=== PATIENT | male | born 1960 | race Caucasian/White ===

== ENCOUNTER → 2018-06-04 09:40 | Outpatient (CLI) | payer BC, SELFPAY ==
[2018-06-04 12:27] LABS: Vitamin D,25 Hydroxy 14.4 ng/mL (29.95-100.01)
[2018-06-04 12:39] LABS: Anion Gap 7 (5-15); BUN 16 mg/dL (7-18); BUN/Creat Ratio 19.5 RATIO (10-20); Calcium,Total 8.7 mg/dL (8.5-10.1); Chloride 109 mmol/L (98-107); Cholesterol 180 mg/dL (200); Creatinine, Serum 0.82 mg/dL (0.70-1.30); EST Glomerular Filtration Rate 103 mL/min (>60); Est Glom Filt Rate - Afr Amer 124 mL/min (>60); Glucose 105 mg/dL (74-106); High Density Lipoprotein 61 mg/dL; Potassium 4.9 mmol/L (3.5-5.1); Sodium Level 143 mmol/L (136-145); Thyroid Stim Hormone (TSH) 1.14 uIU/mL (0.358-3.74); Triglycerides 50 mg/dL; Very Low Density Lipoprotein 10 mg/dL (5-40)
== END ==
PROVIDERS: Family Provider Family Medicine; PCP Family Medicine; Visit Provider Family Medicine
DX: Z00.00 Encounter for general adult medical examination without abnormal findings (principal)
CPT/HCPCS: 36415; 80048; 80061; 82306; 84443

== ENCOUNTER → 2018-12-20 16:05 | Outpatient (CLI) | payer BC, SELFPAY ==
--- NOTE | 2018-12-20 16:14 | VDLE_ITS ---
Reason For Study: LEG PAIN RIGHT CFV is compressible, spontaneous, phasic, competent and demonstrates normal augmentation. FV is compressible, spontaneous, phasic, competent and demonstrates normal augmentation. POP V is compressible, spontaneous, phasic, competent and demonstrates normal augmentation. T/P Trunk is compressible. PTV is compressible. RT PerV is compressible. Thrombus filled varicose veins noted medial and lateral thigh GSV absent s/p stripping. Procedure Exam performed in department. A preliminary report was called and/or faxed to Dr. Rayo. Interpretation Summary Deep veins of the right lower extremity are patent and compressible segmentally. There is no evidence of right lower extremity deep vein thrombosis. Valvular competence appears intact within the proximal deep venous system on the right . The right great saphenous vein is absent. Acute superficial thrombophlebitis is noted involving superficial varicosities in the right medial and lateral thigh. Ordering Physician: Pop Rayo Referring Physician: Pop Rayo Performed By: Ana Luisa Carlin RVT
== END ==
PROVIDERS: Family Provider Family Medicine; PCP Family Medicine; Referring Provider Family Medicine; Visit Provider Family Medicine
DX: M79.604 Pain in right leg (principal)
CPT/HCPCS: 93971

== ENCOUNTER → 2019-06-08 09:55 | Outpatient (CLI) | payer BC, SELFPAY ==
--- NOTE | 2019-06-08 09:58 | RAD_ITS ---
STUDY: X-RAY - LEFT KNEE REASON FOR EXAM: Male, 58 years old. Pain, decreased range of motion TECHNIQUE: 4 view(s) of the knee. COMPARISON: None. FINDINGS: Normal visualized distal femur. Normal visualized proximal tibia and fibula. Normal proximal tibiofibular articulation. There is mild degenerative arthrosis of the medial femorotibial compartment. There is mild degenerative arthrosis of the lateral femorotibial compartment. There is mild degenerative arthrosis of the patellofemoral articulation. Degenerative spurs noted in the patella The soft tissue structures are unremarkable. RAD/Knee 4 or More Views IMPRESSION: Degenerative arthrosis. Electronically Signed: Jm Healy MD at 10:41 EDT , Service support ,
[2019-06-08 13:02] LABS: Anion Gap 7 (5-15); BUN 20 mg/dL (7-18); BUN/Creat Ratio 24.8 RATIO (10-20); Calcium,Total 8.7 mg/dL (8.5-10.1); Chloride 110 mmol/L (98-107); Cholesterol 186 mg/dL (200); Creatinine, Serum 0.81 mg/dL (0.70-1.30); EST Glomerular Filtration Rate 104 mL/min (>60); Est Glom Filt Rate - Afr Amer 126 mL/min (>60); Glucose 90 mg/dL (74-106); High Density Lipoprotein 59 mg/dL; Potassium 4.3 mmol/L (3.5-5.1); Sodium Level 143 mmol/L (136-145); Triglycerides 68 mg/dL; Very Low Density Lipoprotein 14 mg/dL (5-40)
[2019-06-08 13:27] LABS: Vitamin D,25 Hydroxy 16.1 ng/mL (29.95-100.01)
== END ==
PROVIDERS: Family Provider Family Medicine; PCP Family Medicine; Referring Provider Family Medicine; Visit Provider Family Medicine
DX: Z00.00 Encounter for general adult medical examination without abnormal findings (principal); M25.562 Pain in left knee; E55.9 Vitamin D deficiency, unspecified
CPT/HCPCS: 36415; 73564; 80048; 80061; 82306

== ENCOUNTER → 2020-01-07 10:27 | Outpatient (CLI) | payer BC, SELFPAY ==
--- NOTE | 2020-01-07 10:36 | RAD_ITS ---
STUDY: X-RAY - LEFT SHOULDER REASON FOR EXAM: Male, 59 years old. left shoulder pain and limited range of motion, fell yesterday TECHNIQUE: 4 view(s) of the shoulder. COMPARISON: None. FINDINGS: Normal glenohumeral articulation. Normal acromioclavicular joint. Keel spur of the undersurface of acromion produces lateral outlet stenosis. Normal humeral head and visualized proximal humerus. The soft tissue structures are unremarkable. Normal visualized pulmonary apex. RAD/Shoulder min 2 Views IMPRESSION: Keel spur the undersurface of the acromion producing lateral outlet stenosis. MRI would be useful to evaluate the rotator cuff. Electronically Signed: Bartolome Gonzalez MD at 16:22 EST Tel , Service support ,
== END ==
PROVIDERS: PCP Family Medicine; Referring Provider Family Medicine; Visit Provider Family Medicine
DX: M25.512 Pain in left shoulder (principal)
CPT/HCPCS: 73030

== ENCOUNTER → 2020-06-11 16:08 | Outpatient (CLI) | payer BC, SELFPAY ==
[2020-06-11 18:15] LABS: Anion Gap 3 (5-15); BUN 23 mg/dL (7-18); BUN/Creat Ratio 28.3 RATIO (10-20); Calcium,Total 8.5 mg/dL (8.5-10.1); Chloride 110 mmol/L (98-107); Cholesterol 198 mg/dL (200); Creatinine, Serum 0.81 mg/dL (0.70-1.30); EST Glomerular Filtration Rate 103 mL/min (>60); Est Glom Filt Rate - Afr Amer 125 mL/min (>60); Glucose 91 mg/dL (74-106); High Density Lipoprotein 52 mg/dL; PSA,Total - Annual Screen 0.53 ng/mL (0.00-4.00); Potassium 4.8 mmol/L (3.5-5.1); Sodium Level 141 mmol/L (136-145); Triglycerides 96 mg/dL; Very Low Density Lipoprotein 19 mg/dL (5-40); Vitamin D,25 Hydroxy 37.7 ng/mL
== END ==
PROVIDERS: PCP Family Medicine; Referring Provider Family Medicine; Visit Provider Family Medicine
DX: Z00.00 Encounter for general adult medical examination without abnormal findings (principal)
CPT/HCPCS: 36415; 80048; 80061; 82306; 84153; G0103

== ENCOUNTER 2020-07-02 05:52 | Day surgery (SDC) | payer BC, SELFPAY ==
--- NOTE | 2020-06-26 16:02 | EKG12_ITS ---
Test Reason : PREOP Blood Pressure : / mmHG Vent. Rate : 063 BPM Atrial Rate : 063 BPM P-R Int : 170 ms QRS Dur : 102 ms QT Int : 404 ms P-R-T Axes : 058 049 040 degrees QTc Int : 413 ms Normal sinus rhythm Normal ECG Confirmed by KM MAYER ([id number]), editorial writer CIERA KHOURY ([id number]) on 06/29/2020 10:34:22 AM Referred By: Delmar Egan Confirmed By:KM MAYER
[2020-06-26 16:35] LABS: Hematocrit 38.3 % (40-54); Hemoglobin 12.2 g/dL (13.0-16.5); Mean Corp Hgb Conc 31.9 g/dL (32-36); Mean Corpuscular Hgb 31.2 pg (27.0-32.0); Mean Platelet Vol. 9.6 fl (6.2-12.0); Platelet Count 219 K/mm3 (150-450); RBC Distribution Width CV 13.4 % (11.6-14.6); RBC Distribution Width SD 47.8 fl (35.1-43.9); Red Blood Count 3.91 M/mm3 (4.6-6.2); White Blood Count 7.7 K/mm3 (4.4-11.0)
[2020-06-26 16:44] LABS: International Normalized Ratio 1.1; Partial Thromboplast Time 26.1 Seconds (24.1-36.2); Prothrombin Time (Protime)PT. 13.2 SECONDS (11.7-14.9)
[2020-06-26 17:08] LABS: AST(SGOT) 10 U/L (15-37); Alanine Aminotransfer ALT/SGPT 21 U/L (16-61); Albumin, Serum 3.6 g/dL (3.2-5.0); Alkaline Phosphatase 60 U/L (45-117); Anion Gap 6 (5-15); BUN 13 mg/dL (7-18); Bilirubin, Direct 0.14 mg/dL (0.00-0.30); Calcium,Total 8.7 mg/dL (8.5-10.1); Chloride 112 mmol/L (98-107); Creatinine, Serum 0.72 mg/dL (0.70-1.30); EST Glomerular Filtration Rate 118 mL/min (>60); Est Glom Filt Rate - Afr Amer 143 mL/min (>60); Globulin 3.4 g/dL (2.2-4.2); Glucose 87 mg/dL (74-106); Potassium 4.2 mmol/L (3.5-5.1); Sodium Level 143 mmol/L (136-145)
[2020-07-02] VITALS (7 sets, daily range): BP systolic 109–147; BP diastolic 66–82; PULSE 56–63; RESP 16–20; TEMP 36.1–36.8; O2SAT 93–99; BMI 36.4
[2020-07-02] MEDS: Lactated Ringers 1,000 ML 100 ML IV (06:22)
[2020-07-02] MEDS: Epinephrine (1 mg/ml) 1 MG/ML VIAL (08:00)
--- NOTE | 2020-07-02 09:24 | OP.PCM_ITS ---
Report of Operation Date of Procedure: 07/02/20 Pre-Operative Diagnosis: SAIS, AC arthrosis, large rotator cuff tear left shoulder Post-Operative Diagnosis: same Surgery/Procedure Performed:: ASD, Sandra procedure, repair of large rotator cuff tear digital field service technician: David Payne Type of Anesthesia:: General/Regional Anesthesiologist: Mitchell Lloyd - Admfermín VTE Documentation VTE Present on Admission: No VTE Mechan Device Prophylaxis: SCD's, Thigh High CITLALI Hose VTE Pharm Prophylaxis ordered?: No Reason prophylaxis not ordered:: Procedure Not Indicated
[2020-07-02] MEDS: HYDROcodone Bitartrate/Apap 5/325 Tablet PO (10:52)
== END 2020-07-02 11:47 | disposition home or self-care (01) ==
LOC: SDC 05:52 → AC 05:59
PROVIDERS: Anesthesiology; PCP Family Medicine; Referring Provider Orthopaedic Surgery; Visit Provider Orthopaedic Surgery
PROC: (CPT 29827; principal; 2020-07-02 07:10)
DX: S46.012A Strain of muscle(s) and tendon(s) of the rotator cuff of left shoulder, initial encounter (principal); S43.52XA Sprain of left acromioclavicular joint, initial encounter; M75.42 Impingement syndrome of left shoulder; M19.012 Primary osteoarthritis, left shoulder; M75.52 Bursitis of left shoulder; W19.XXXA Unspecified fall, initial encounter; Y93.9 Activity, unspecified; Y92.9 Unspecified place or not applicable; Y99.9 Unspecified external cause status; Z11.59 Encounter for screening for other viral diseases; J45.909 Unspecified asthma, uncomplicated; G47.30 Sleep apnea, unspecified; G47.00 Insomnia, unspecified; Z86.72 Personal history of thrombophlebitis; Z86.73 Personal history of transient ischemic attack (TIA), and cerebral infarction without residual deficits; Z87.891 Personal history of nicotine dependence; K21.9 Gastro-esophageal reflux disease without esophagitis; Z86.718 Personal history of other venous thrombosis and embolism
CPT/HCPCS: 29824; 29826; 29827; 64415; 36415; 80048; 80076; 85027; 85610; 85730; 87635; 93005; 94799; J7120; J2405; U0003

== ENCOUNTER → 2020-09-03 16:54 | Outpatient (CLI) | payer BC, SELFPAY ==
[2020-07-02 06:16] VITALS: BMI 36.4
== END ==
PROVIDERS: PCP Family Medicine; Visit Provider Family Medicine
DX: U07.1 COVID-19 (principal)
CPT/HCPCS: 87635; U0003

== ENCOUNTER 2020-10-20 11:52 | Emergency (ER) | payer BC, SELFPAY ==
[2020-07-02 06:16] VITALS: BMI 36.4
[2020-10-20 11:52] VITALS: BP 141/87; PULSE 75; RESP 16; TEMP 36.4; O2SAT 100; BMI 37.1
--- NOTE | 2020-10-20 12:08 | VDLE_ITS ---
Reason For Study: Swelling RIGHT LEFT CFV is compressible, spontaneous, phasic, GSV is normal. competent and demonstrates normal CFV is compressible, spontaneous, phasic, augmentation. competent, and demonstrates normal Procedure augmentation. This is a venous duplex using B-mode, color FV prox is compressible with normal venous flow and spectral Doppler. flow noted. Exam performed portable in ED. FV mid is partialy compressible with minimal A preliminary report was called and/or faxed venous flow noted. to [facility]. Acute deep vein thrombosis is noted in the left FV mid-distal, PopV, T/P Trunk, GastrocV, PTV prox-mid and PeroV prox-mid. PTV distal is compressible. PeroV distal is compressible. Interpretation Summary Acute deep venous thrombosis left mid and distal femoral vein Acute deep venous thrombosis left popliteal, tibioperoneal trunk, gastrocnemius, posterior tibial, and peroneal veins. Patent and compressible left great saphenous vein Patent and compressible right common femoral vein Ordering Physician: Chester Shirley Referring Physician: Pop Rayo Performed By: Amelia Gallegos RVT
--- NOTE | 2020-10-20 12:08 | ED.VIS.LOWEX ---
History of Present Illness Chief Complaint: Lower Extremity Injury Informant: Patient Onset: Today Context: - - awoke w/ leg sore and swollen Timing: Continuous Quality of Pain: - - sore Location: left lower leg Current Severity: Moderate Maximum Severity: Moderate Worsened by: walking Relieved by: rest Associated Symptoms: Negative for: Parasthesia, Weakness, Loss of Funtion Narrative: Patient has a history of varicose veins in both of his legs and he has had prior strippings, all remote and none recent, and he has had superficial venous thrombosis in his right lower extremity in the past but never had a deep vein thrombosis. Never been anticoagulated. Currently feels like he is having a blood clot of some sort in his left lower leg which has never been the case in the past. He had a rotator cuff surgery in June which was 3-4 months ago, he has been sedentary since then but no long travel, immobilization, other hospitalization/surgery. He denies any chest pain, shortness of breath, palpitations, near syncope/lightheadedness. No other illness. He had Covid several months ago, he recovered from that. He is healthy otherwise. - Past Medical History (1) Superficial vein thrombosis Status: Resolved (2) Varicose veins of both lower extremities Status: Chronic (3) Arthritis Status: Chronic Past Medical History - Allergies and Home Meds Allergies/Adverse Reactions: Allergies No Known Allergies Allergy (Verified 10/20/20 11:54) Primary Care Physician: Pop Rayo MD [Primary Care Provider] - Surgical History: rotator cuff repair Smoking Status: Former smoker Review of Systems General: Denies: Chills, Fever, Sweats Eyes: Denies: Visual changes - bilaterally, Diplopia ENT: Denies: Bilateral ear pain, Rhinorrhea, Sore throat Cardiovascular: Denies: Chest pain, Palpitations, Heart racing Respiratory: Denies: Dyspnea, Cough, Dyspnea on exertion Gastrointestinal: Denies: Abdominal pain, Nausea, Vomiting, Diarrhea, Melena, Hematochezia Genitourinary: Denies: Dysuria, Hematuria, Frequency Musculoskeletal: Reports: Swelling, Extremity Pain. Denies: Myalgias, Back pain Skin: Denies: Rash, Wounds Neurological: Denies: Headache, Weakness, Numbness Physical Exam Vital Signs/Narrative: Vital Signs Temp Pulse Resp BP Pulse Ox 10/20/20 11:52 97.5 F L 75 16 141/87 H 100 Inital Vital Signs reviewed: Yes - Extremity Exam Left Tib Fib: Edema - Left lower leg, pitting 2+, to the knee. No palpable cords., - - Left lower extremity nontender except Homans is positive. No signs of cellulitis or anything else focal on the skin. General: Well nourished, Well developed, - - Well-appearing no distress Head: Normocephalic, Atraumatic Skin: Normal color, No rash, No Trauma Neurological: Alert, Oriented x3, Cranial nerves II-XII grossly intact, Normal Strength, Normal Sensation Psychological: Normal affect, Normal Mood Diagnostic/Tx/Re-eval - Medical Decision Making Venous ultrasound was obtained of the left lower extremity and preliminary results from the tech is that he has a DVT from the left thigh down into the left calf. We will treat him with anticoagulants. He has no signs or symptoms of pulmonary embolus. He is given Lovenox here to last him through the evening and night, to start Eliquis in the morning. ED Disposition - Plan for ED Patient: Disposition: Home or Assisted Living Diagnosis: Acute deep vein thrombosis of left lower extremity Instructions: ED Deep Vein Thrombosis (DVT) Prescriptions: Apixaban [Eliquis] 5 mg PO BID #1 tab.ds.pk Transmission Status: Pending to [id number] Referrals: Pop Rayo MD [Primary Care Provider] - 1-2 Weeks
[2020-10-20] MEDS: Enoxaparin 150 MG/ML Syringe SC (13:49)
== END 2020-10-20 13:51 | disposition home or self-care (01) ==
LOC: ED 13:32
PROVIDERS: Emergency Provider Emergency Medicine; PCP Family Medicine
DX: I82.412 Acute embolism and thrombosis of left femoral vein (principal); I82.432 Acute embolism and thrombosis of left popliteal vein; I82.442 Acute embolism and thrombosis of left tibial vein; I82.452 Acute embolism and thrombosis of left peroneal vein; I82.462 Acute embolism and thrombosis of left calf muscular vein; M19.90 Unspecified osteoarthritis, unspecified site; Z87.891 Personal history of nicotine dependence
CPT/HCPCS: 93971; 96372; 99282

== ENCOUNTER → 2021-01-21 16:18 | Outpatient (CLI) | payer BC, SELFPAY ==
--- NOTE | 2021-01-21 16:22 | RAD_ITS ---
STUDY: X-RAY - LEFT KNEE REASON FOR EXAM: Left knee pain for 3 weeks. TECHNIQUE: 4 view(s) of the knee. COMPARISON: Radiographs 06/08/2019. FINDINGS: Normal visualized distal femur. Normal visualized proximal tibia and fibula. Normal proximal tibiofibular articulation. Normal medial femorotibial compartment. There are small marginal and central osteophytes without joint space narrowing of the lateral femorotibial compartment. There are marginal osteophytes and moderate joint space narrowing of the patellofemoral articulation. There is a joint effusion. RAD/Knee 4 or More Views IMPRESSION: Patellofemoral arthrosis. Joint effusion. Electronically Signed: Alexis Cervantes MD at 8:49 EST Tel , Service support ,
== END ==
PROVIDERS: PCP Family Medicine; Referring Provider Family Medicine; Visit Provider Family Medicine
DX: M25.562 Pain in left knee (principal)
CPT/HCPCS: 73564

== ENCOUNTER 2022-01-09 11:14 | Outpatient (CLI) | payer OTHER, SELFPAY | END 2022-01-09 23:59 | disposition home or self-care (01) | PROVIDERS: PCP Family Medicine; Referring Provider Chiropractor; Visit Provider Chiropractor | DX: M54.9 Dorsalgia, unspecified (principal); M99.03 Segmental and somatic dysfunction of lumbar region; M99.05 Segmental and somatic dysfunction of pelvic region | CPT/HCPCS: 72110 ==